=== PATIENT | male | born 1970 | race Caucasian/White ===

== ENCOUNTER 2021-09-16 10:16 | Inpatient (IN) | payer OTHER ==
[2021-09-16 10:59] VITALS: BMI 21.4
[2021-09-16] MEDS ORDERED: BISMUTH SUBSALICYLATE 262 MG/15 ML BTL PO PRN (12:06)
[2021-09-16] MEDS ORDERED: NALOXONE HCL (KLOXXADO) 8 MG SPRAY NS PRN (12:06)
[2021-09-16] MEDS ORDERED: NICOTINE POLACRILEX 4 MG GUM BUC PRN (12:06)
[2021-09-16] MEDS ORDERED: MAGNESIUM HYDROX 2400MG/30ML ORAL SUSPENSION 30 ML CUP PO PRN (12:06)
[2021-09-16] MEDS ORDERED: BACLOFEN 10 MG TABLET (FP) PO PRN (12:06)
[2021-09-16] MEDS ORDERED: ACETAMINOPHEN 325 MG TABLET (FP) PO PRN ×2 (12:06)
[2021-09-16] MEDS ORDERED: MAG HYDROX/AL HYDROX/SIMETH 30 ML UNIT-DOSE CUP PO PRN (12:06)
[2021-09-16] MEDS ORDERED: MAGNESIUM CITRATE 300 ML BOTTLE PO PRN (12:06)
[2021-09-16] MEDS ORDERED: ONDANSETRON *ODT* 4 MG TABLET SL PRN (12:06)
[2021-09-16] MEDS ORDERED: BENZOCAINE/MENTHOL (CHLORASEPTIC ) LOZENGE MM PRN (12:06)
[2021-09-16] MEDS ORDERED: DICYCLOMINE HCL 10 MG CAPSULE PO PRN (12:06)
[2021-09-16] MEDS ORDERED: IBUPROFEN 400 MG TABLET (FP) PO PRN (12:06)
[2021-09-16] MEDS ORDERED: LOPERAMIDE HCL 2 MG CAPSULE PO PRN (12:06)
[2021-09-16] MEDS: PRENATAL VITAMINS W/ FOLIC ACID TABLET (FP) PO SCH (12:54)
[2021-09-16] MEDS: hydrOXYzine PAMOATE 25 MG CAPSULE (FP) PO SCH ×3 (15:06→22:10)
[2021-09-16 15:17] LABS: HEMATOCRIT 43.9 % (35.4-49); HEMOGLOBIN 14.8 GM/dL (11.7-16.9); MCHC 33.7 g/dl (32.0-35.9); MEAN CELL VOLUME 89.2 fl (80-96); PLATELET COUNT 237 10^3/uL (134-434); RBC 4.93 M/mm3 (4.00-5.60); RDW 14.3 % (11.9-15.9); WHITE BLOOD COUNT 11.2 K/mm3 (4.0-10.0)
[2021-09-16 15:22] LABS: CALCIUM 9.3 mg/dL (8.5-10.1)
[2021-09-16 15:23] LABS: ALBUMIN 3.8 g/dl (3.4-5.0); BLOOD UREA NITROGEN 14.6 mg/dL (7-18)
[2021-09-16 15:25] LABS: CREATININE 0.7 mg/dL (0.55-1.3)
[2021-09-16 15:28] LABS: BILIRUBIN,TOTAL 0.3 mg/dL (0.2-1); TOT PROT 7.5 g/dl (6.4-8.2)
[2021-09-16 16:13] LABS: HIV INTERPRETATION NEGATIVE (NEGATIVE)
[2021-09-16] MEDS: THIAMINE HCL 100 MG TABLET (FP) PO SCH (22:09)
[2021-09-16] MEDS: MELATONIN 5 MG TABLETS PO SCH (22:11)
[2021-09-17] MEDS: hydrOXYzine PAMOATE 25 MG CAPSULE (FP) PO SCH ×5 (05:19→22:26)
[2021-09-17] MEDS ORDERED: methaDONE HCL 10 MG TABLET PO SCH (07:30)
[2021-09-17] MEDS ORDERED: methaDONE HCL 40 MG DISPERSABLE TABLET ONE (07:39)
[2021-09-17] MEDS ORDERED: methaDONE HCL 10 MG TABLET ONE (07:39)
[2021-09-17] MEDS: methaDONE 80 MG, methaDONE 20 MG PO SCH (07:41)
[2021-09-17] MEDS: PRENATAL VITAMINS W/ FOLIC ACID TABLET (FP) PO SCH (10:40)
[2021-09-17] MEDS: diazePAM 5 MG TABLET PO SCH ×3 (10:40→22:24)
[2021-09-17] MEDS: MELATONIN 5 MG TABLETS PO SCH (22:25)
[2021-09-17] MEDS: THIAMINE HCL 100 MG TABLET (FP) PO SCH (22:26)
[2021-09-17] MEDS: IBUPROFEN 600 MG TABLET (FP) PO PRN (22:26)
[2021-09-18] MEDS ORDERED: methaDONE HCL 40 MG DISPERSABLE TABLET ONE (04:13)
[2021-09-18] MEDS ORDERED: methaDONE HCL 10 MG TABLET ONE (04:13)
[2021-09-18] MEDS: hydrOXYzine PAMOATE 25 MG CAPSULE (FP) PO SCH ×5 (05:22→22:05)
[2021-09-18] MEDS: diazePAM 5 MG TABLET PO SCH ×4 (05:22→22:04)
[2021-09-18] MEDS: methaDONE 80 MG, methaDONE 20 MG PO SCH (05:22)
[2021-09-18] MEDS: PRENATAL VITAMINS W/ FOLIC ACID TABLET (FP) PO SCH (10:09)
[2021-09-18] MEDS: THIAMINE HCL 100 MG TABLET (FP) PO SCH (22:03)
[2021-09-18] MEDS: MELATONIN 5 MG TABLETS PO SCH (22:04)
[2021-09-19] MEDS ORDERED: methaDONE HCL 40 MG DISPERSABLE TABLET ONE (04:48)
[2021-09-19] MEDS ORDERED: methaDONE HCL 10 MG TABLET ONE (04:48)
[2021-09-19] MEDS: methaDONE 80 MG, methaDONE 20 MG PO SCH (05:13)
[2021-09-19] MEDS: diazePAM 5 MG TABLET PO SCH ×3 (05:13→22:35)
[2021-09-19] MEDS: hydrOXYzine PAMOATE 25 MG CAPSULE (FP) PO SCH ×5 (05:14→22:35)
[2021-09-19] MEDS: diazePAM 5 MG TABLET PO PRN ×2 (10:03→18:00)
[2021-09-19] MEDS: PRENATAL VITAMINS W/ FOLIC ACID TABLET (FP) PO SCH (10:04)
[2021-09-19 11:15] LABS: EOS % 3.2 % (0-4.5); HEMATOCRIT 46.7 % (35.4-49); LYMPH % 30.2 % (8-40); MCH 30.2 pg (25.7-33.7); MCHC 34.3 g/dl (32.0-35.9); MEAN CELL VOLUME 88.1 fl (80-96); MEAN PLT VOLUME 7.8 fl (7.5-11.1); MONO % 7.2 % (3.8-10.2); NEUT % 58.4 % (42.8-82.8); PLATELET COUNT 250 10^3/uL (134-434); RBC 5.31 M/mm3 (4.00-5.60); RDW 14.1 % (11.9-15.9); WHITE BLOOD COUNT 8.8 K/mm3 (4.0-10.0)
[2021-09-19] MEDS: THIAMINE HCL 100 MG TABLET (FP) PO SCH (22:34)
[2021-09-19] MEDS: IBUPROFEN 600 MG TABLET (FP) PO PRN (22:34)
[2021-09-19] MEDS: MELATONIN 5 MG TABLETS PO SCH (22:35)
[2021-09-20] MEDS ORDERED: methaDONE HCL 10 MG TABLET ONE (04:03)
[2021-09-20] MEDS ORDERED: methaDONE HCL 40 MG DISPERSABLE TABLET ONE (04:03)
[2021-09-20] MEDS: methaDONE 80 MG, methaDONE 20 MG PO SCH (05:12)
[2021-09-20] MEDS: hydrOXYzine PAMOATE 25 MG CAPSULE (FP) PO SCH ×2 (05:12→10:18)
[2021-09-20] MEDS ORDERED: diazePAM 5 MG TABLET PO SCH (06:00)
[2021-09-20 09:35] VITALS: TEMP 97.8
[2021-09-20] MEDS: PRENATAL VITAMINS W/ FOLIC ACID TABLET (FP) PO SCH (10:18)
[2021-09-20 13:15] VITALS: BP 130/92; PULSE 59
[2021-09-21] MEDS ORDERED: diazePAM 5 MG TABLET PO ONE (06:00)
== END 2021-09-20 14:05 | disposition home or self-care (01) | DRG 897 ==
LOC: YASAS 10:16 → Y6N 12:19
PROVIDERS: ADMIT Allergy & Immunology; ATTEND Surgery
PROC: HZ2ZZZZ Detoxification Services for Substance Abuse Treatment (ICD-10-PCS; principal; 2021-09-16)
DX: F10.230 Alcohol dependence with withdrawal, uncomplicated (principal); F11.20 Opioid dependence, uncomplicated; F14.20 Cocaine dependence, uncomplicated; F13.20 Sedative, hypnotic or anxiolytic dependence, uncomplicated; F19.280 Other psychoactive substance dependence with psychoactive substance-induced anxiety disorder; F19.282 Other psychoactive substance dependence with psychoactive substance-induced sleep disorder; F12.20 Cannabis dependence, uncomplicated; F17.210 Nicotine dependence, cigarettes, uncomplicated; F43.10 Post-traumatic stress disorder, unspecified; Z94.5 Skin transplant status; Z87.828 Personal history of other (healed) physical injury and trauma; Z91.010 Allergy to peanuts; Z91.013 Allergy to seafood
CPT/HCPCS: 36415; 80053; 85025; 85027; 86780; 87389; 87811; 93005; 93010; C9803-CS; J0475; U0003; U0005

== ENCOUNTER 2022-10-21 09:53 | Inpatient (IN) | payer OTHER ==
[2022-10-21 10:15] VITALS: BMI 20.5
[2022-10-21] MEDS ORDERED: METHOCARBAMOL 500 MG TABLET PO PRN (10:55)
[2022-10-21] MEDS ORDERED: NICOTINE POLACRILEX 2 MG GUM BUC PRN (10:55)
[2022-10-21] MEDS ORDERED: BENZOCAINE/MENTHOL (CHLORASEPTIC ) LOZENGE MM PRN (10:55)
[2022-10-21] MEDS ORDERED: MAGNESIUM HYDROX 2400MG/30ML ORAL SUSPENSION 30 ML CUP PO PRN (10:55)
[2022-10-21] MEDS ORDERED: ACETAMINOPHEN 325 MG TABLET (FP) PO PRN (10:55)
[2022-10-21] MEDS ORDERED: IBUPROFEN 600 MG TABLET (FP) PO PRN (10:55)
[2022-10-21] MEDS ORDERED: NALOXONE HCL 0.4 MG/ML VIAL IM PRN (10:55)
[2022-10-21] MEDS ORDERED: BISMUTH SUBSALICYLATE 262 MG/15 ML BTL PO PRN (10:55)
[2022-10-21] MEDS ORDERED: IBUPROFEN 400 MG TABLET (FP) PO PRN (10:55)
[2022-10-21] MEDS ORDERED: ONDANSETRON *ODT* 4 MG TABLET SL PRN (10:55)
[2022-10-21] MEDS ORDERED: P-EPHED 60MG/TRIPROLIDI 2.5MG TABLET PO PRN (10:55)
[2022-10-21] MEDS ORDERED: LOPERAMIDE HCL 2 MG CAPSULE PO PRN (10:55)
[2022-10-21] MEDS ORDERED: BENZONATATE 200 MG CAPSULE PO PRN (10:55)
[2022-10-21] MEDS ORDERED: guaiFENesin 600 MG TABLET.ER (FP) PO PRN (10:55)
[2022-10-21] MEDS ORDERED: NALOXONE HCL (KLOXXADO) 8 MG SPRAY NS PRN (10:55)
[2022-10-21] MEDS ORDERED: MAG HYDROX/AL HYDROX/SIMETH 30 ML UNIT-DOSE CUP PO PRN (10:55)
[2022-10-21] MEDS ORDERED: POLYETHYLENE GLYCOL (HEALTHYLAX) 3350 17 GM PACKET PO PRN (10:55)
[2022-10-21] MEDS ORDERED: DICYCLOMINE HCL 10 MG CAPSULE PO PRN (10:55)
[2022-10-21 16:30] LABS: HIV INTERPRETATION NEGATIVE (NEGATIVE)
[2022-10-21] MEDS: MELATONIN 5 MG TABLETS PO SCH (22:19)
[2022-10-21] MEDS: THIAMINE HCL 100 MG TABLET (FP) PO SCH (22:19)
[2022-10-22] MEDS: hydrOXYzine PAMOATE 25 MG CAPSULE (FP) PO PRN ×2 (05:57→17:34)
[2022-10-22] MEDS ORDERED: methaDONE HCL 10 MG TABLET PO ONE (09:00)
[2022-10-22] MEDS ORDERED: methaDONE 80 MG, methaDONE 20 MG PO ONE (09:00)
[2022-10-22] MEDS: PRENATAL VITAMINS W/ FOLIC ACID TABLET (FP) PO SCH (09:03)
[2022-10-22] MEDS ORDERED: BENZOCAINE/MENTHOL (CHLORASEPTIC ) LOZENGE MM PRN (12:35)
[2022-10-22] MEDS ORDERED: NALOXONE HCL (KLOXXADO) 8 MG SPRAY NS PRN (12:35)
[2022-10-22] MEDS ORDERED: LOPERAMIDE HCL 2 MG CAPSULE PO PRN (12:35)
[2022-10-22] MEDS ORDERED: MAGNESIUM HYDROX 2400MG/30ML ORAL SUSPENSION 30 ML CUP PO PRN (12:35)
[2022-10-22] MEDS ORDERED: ACETAMINOPHEN 325 MG TABLET (FP) PO PRN (12:35)
[2022-10-22] MEDS ORDERED: NALOXONE HCL 0.4 MG/ML VIAL IM PRN (12:35)
[2022-10-22] MEDS ORDERED: BISMUTH SUBSALICYLATE 524 MG/30 ML PO PRN (12:35)
[2022-10-22] MEDS ORDERED: hydrOXYzine PAMOATE 25 MG CAPSULE (FP) PO PRN (12:35)
[2022-10-22] MEDS ORDERED: guaiFENesin 600 MG TABLET.ER (FP) PO PRN (12:35)
[2022-10-22] MEDS ORDERED: IBUPROFEN 400 MG TABLET (FP) PO PRN (12:35)
[2022-10-22] MEDS ORDERED: BENZONATATE 200 MG CAPSULE PO PRN (12:35)
[2022-10-22] MEDS ORDERED: MAG HYDROX/AL HYDROX/SIMETH 30 ML UNIT-DOSE CUP PO PRN (12:35)
[2022-10-22] MEDS ORDERED: POLYETHYLENE GLYCOL (HEALTHYLAX) 3350 17 GM PACKET PO PRN (12:35)
[2022-10-22] MEDS ORDERED: IBUPROFEN 600 MG TABLET (FP) PO PRN (12:35)
[2022-10-22] MEDS ORDERED: DICYCLOMINE HCL 10 MG CAPSULE PO PRN (12:35)
[2022-10-22] MEDS ORDERED: METHOCARBAMOL 500 MG TABLET PO PRN (12:35)
[2022-10-22] MEDS ORDERED: ONDANSETRON *ODT* 4 MG TABLET SL PRN (12:35)
[2022-10-22 14:01] LABS: HEMATOCRIT 45.4 % (35.4-49); MCH 30.7 pg (25.7-33.7); MEAN CELL VOLUME 93.1 fl (80-96); MEAN PLT VOLUME 10.1 fl (7.5-11.1); PLATELET COUNT 247 10^3/uL (134-434); RBC 4.88 M/mm3 (4.00-5.60); RDW 13.3 % (11.9-15.9); WHITE BLOOD COUNT 12.2 K/mm3 (4.0-10.0)
[2022-10-22 15:01] LABS: POTASSIUM 5.5 mmol/L (3.5-5.1)
[2022-10-22 15:04] LABS: ALBUMIN 4.2 g/dl (3.4-5.0); BLOOD UREA NITROGEN 19.6 mg/dL (7-18); CALCIUM 9.1 mg/dL (8.5-10.1)
[2022-10-22 15:09] LABS: BILIRUBIN,TOTAL 0.4 mg/dL (0.2-1)
[2022-10-22 15:11] LABS: CREATININE 0.8 mg/dL (0.55-1.3); TOT PROT 7.7 g/dl (6.4-8.2)
[2022-10-22] MEDS ORDERED: SODIUM POLYSTYRENE SULFONATE 15 GM/60 ML BOTTLE PO ONE (20:17)
[2022-10-22] MEDS ORDERED: THIAMINE HCL 100 MG TABLET (FP) PO SCH (22:00)
[2022-10-22] MEDS ORDERED: MELATONIN 5 MG TABLETS PO SCH (22:00)
[2022-10-22] MEDS: MELATONIN 5 MG TABLETS PO SCH (22:33)
[2022-10-22] MEDS: THIAMINE HCL 100 MG TABLET (FP) PO SCH (22:33)
[2022-10-23] MEDS: hydrOXYzine PAMOATE 25 MG CAPSULE (FP) PO PRN ×3 (01:43→22:19)
[2022-10-23] MEDS: methaDONE 80 MG, methaDONE 20 MG PO SCH (05:57)
[2022-10-23] MEDS ORDERED: methaDONE HCL 10 MG TABLET PO SCH (06:00)
[2022-10-23] MEDS: diazePAM 5 MG TABLET PO PRN ×2 (09:34→18:09)
[2022-10-23] MEDS: PRENATAL VITAMINS W/ FOLIC ACID TABLET (FP) PO SCH (09:35)
[2022-10-23] MEDS ORDERED: PRENATAL VITAMINS W/ FOLIC ACID TABLET (FP) PO SCH (10:00)
[2022-10-23] MEDS: diazePAM 5 MG TABLET PO SCH ×2 (14:31→22:21)
[2022-10-23] MEDS: MELATONIN 5 MG TABLETS PO SCH (22:18)
[2022-10-23] MEDS: THIAMINE HCL 100 MG TABLET (FP) PO SCH (22:19)
[2022-10-24] MEDS: methaDONE 80 MG, methaDONE 20 MG PO SCH (05:43)
[2022-10-24] MEDS ORDERED: diazePAM 5 MG TABLET PO SCH (06:00)
[2022-10-24 09:39] VITALS: BP 141/77; PULSE 62; RESP 18; TEMP 98
[2022-10-25] MEDS ORDERED: diazePAM 5 MG TABLET PO ONE (06:00)
== END 2022-10-24 09:10 | disposition home or self-care (01) | DRG 897 ==
LOC: YASAS 09:53 → Y6N 11:41
PROVIDERS: ADMIT Allergy & Immunology; ATTEND Allergy & Immunology
PROC: HZ2ZZZZ Detoxification Services for Substance Abuse Treatment (ICD-10-PCS; principal; 2022-10-21)
DX: F11.20 Opioid dependence, uncomplicated (principal); F13.20 Sedative, hypnotic or anxiolytic dependence, uncomplicated; F14.20 Cocaine dependence, uncomplicated; F19.280 Other psychoactive substance dependence with psychoactive substance-induced anxiety disorder; F19.282 Other psychoactive substance dependence with psychoactive substance-induced sleep disorder; F17.210 Nicotine dependence, cigarettes, uncomplicated; F12.20 Cannabis dependence, uncomplicated; F43.10 Post-traumatic stress disorder, unspecified; F41.9 Anxiety disorder, unspecified; F32.A Depression, unspecified; I10 Essential (primary) hypertension
CPT/HCPCS: 36415; 80053; 84132; 85027; 86780; 87389; 87635; 87811; G0480

== ENCOUNTER 2024-07-14 18:04 | Inpatient (IN) | payer OTHER ==
[2024-07-14 18:29] VITALS: BMI 23.6
[2024-07-14] MEDS ORDERED: BENZOCAINE/MENTHOL (CHLORASEPTIC ) LOZENGE MM PRN (20:42)
[2024-07-14] MEDS ORDERED: BENZONATATE 200 MG CAPSULE PO PRN (20:42)
[2024-07-14] MEDS ORDERED: NALOXONE (NARCAN) HCL 4 MG/0.1 ML SPRAY NS PRN (20:42)
[2024-07-14] MEDS ORDERED: NICOTINE POLACRILEX 2 MG GUM BUC PRN (20:42)
[2024-07-14] MEDS ORDERED: ONDANSETRON *ODT* 4 MG TABLET SL PRN (20:42)
[2024-07-14] MEDS ORDERED: POLYETHYLENE GLYCOL (HEALTHYLAX) 3350 17 GM PACKET PO PRN (20:42)
[2024-07-14] MEDS ORDERED: guaiFENesin 600 MG TABLET.ER (FP) PO PRN (20:42)
[2024-07-14] MEDS ORDERED: hydrOXYzine PAMOATE 25 MG CAPSULE (FP) PO PRN (20:42)
[2024-07-14] MEDS ORDERED: MAGNESIUM HYDROX 2400MG/30ML ORAL SUSPENSION 30 ML CUP PO PRN (20:42)
[2024-07-14] MEDS ORDERED: IBUPROFEN 400 MG TABLET (FP) PO PRN (20:42)
[2024-07-14] MEDS ORDERED: LOPERAMIDE HCL 2 MG CAPSULE PO PRN (20:42)
[2024-07-14] MEDS ORDERED: ACETAMINOPHEN 325 MG TABLET (FP) PO PRN (20:42)
[2024-07-14] MEDS ORDERED: DICYCLOMINE HCL 10 MG CAPSULE PO PRN (20:42)
[2024-07-14] MEDS: diazePAM 5 MG TABLET PO SCH (22:26)
[2024-07-14] MEDS: THIAMINE 100 MG TABLET PO SCH (22:27)
[2024-07-14] MEDS: MELATONIN 5 MG TABLETS PO SCH (22:27)
[2024-07-15] MEDS ORDERED: methaDONE HCL 10 MG TABLET PO SCH (08:45)
[2024-07-15] MEDS: methaDONE 80 MG, methaDONE 20 MG PO SCH (09:45)
[2024-07-15] MEDS: NICOTINE 14 MG/24 HOURS TOPICAL PATCH TD SCH (10:17)
[2024-07-15] MEDS: PRENATAL VITAMINS W/ FOLIC ACID TABLET (FP) PO SCH (10:18)
[2024-07-15 11:00] LABS: HEMATOCRIT 44.9 % (40.1-51.0); MCHC 33.4 g/dl (32.3-36.5); MEAN CELL VOLUME 92.6 fl (79.0-92.2); MEAN PLT VOLUME 10.5 fl (9.4-12.4); PLATELET COUNT 245 x10^3/uL (163-337); RDW 12.7 % (12.2-16.1)
[2024-07-15 11:18] LABS: CHLORIDE 104 mmol/L (98-107); POTASSIUM 4.5 mmol/L (3.5-5.1); SODIUM 145 mmol/L (136-145)
[2024-07-15 12:05] LABS: CALCIUM 9.4 mg/dL (8.5-10.1)
[2024-07-15 12:06] LABS: ALBUMIN 3.3 g/dl (3.4-5.0); ANION GAP 13 mmol/L (4-13); BLOOD UREA NITROGEN 17.6 mg/dL (7-18); CO2 28 mmol/L (21-32); GLUCOSE,RANDOM 133 mg/dL (74-106)
[2024-07-15 12:09] LABS: CREATININE 0.7 mg/dL (0.55-1.3); SGOT/AST 19 U/L (15-37); SGPT/ALT 19 U/L (13-61)
[2024-07-15 12:11] LABS: TOT PROT 6.3 g/dl (6.4-8.2)
[2024-07-15 12:12] LABS: ALK PHOS 69 U/L (45-117); BILIRUBIN,TOTAL 0.5 mg/dL (0.2-1)
[2024-07-15] MEDS: MAG HYDROX/AL HYDROX/SIMETH 30 ML UNIT-DOSE CUP PO PRN (22:21)
[2024-07-15] MEDS: METHOCARBAMOL 500 MG TABLET PO PRN (22:21)
[2024-07-16] MEDS: diazePAM 5 MG TABLET PO SCH (06:30)
[2024-07-16] MEDS: diazePAM 5 MG TABLET PO PRN (10:13)
[2024-07-16] MEDS: BISMUTH SUBSALICYLATE 524 MG/30 ML PO PRN (19:56)
[2024-07-16] MEDS: IBUPROFEN 600 MG TABLET (FP) PO PRN (22:35)
[2024-07-17] MEDS: diazePAM 5 MG TABLET PO SCH (05:18)
[2024-07-18] MEDS: diazePAM 5 MG TABLET PO ONE (05:39)
[2024-07-18 08:52] VITALS: BP 136/80; PULSE 81; RESP 18; TEMP 97.4
== END 2024-07-18 09:13 | disposition other institution (70) | DRG 897 ==
LOC: YASAS 18:04 → Y3N 21:33
PROVIDERS: ADMIT Allergy & Immunology; ATTEND Allergy & Immunology
PROC: HZ2ZZZZ Detoxification Services for Substance Abuse Treatment (ICD-10-PCS; principal; 2024-07-14)
DX: F10.230 Alcohol dependence with withdrawal, uncomplicated (principal); F11.20 Opioid dependence, uncomplicated; F14.20 Cocaine dependence, uncomplicated; F13.230 Sedative, hypnotic or anxiolytic dependence with withdrawal, uncomplicated; F12.20 Cannabis dependence, uncomplicated; F17.210 Nicotine dependence, cigarettes, uncomplicated; F43.10 Post-traumatic stress disorder, unspecified; F41.9 Anxiety disorder, unspecified; F32.A Depression, unspecified
CPT/HCPCS: 36415; 80053; 80305; 80307; 85027; 86780; 93005; 93010